=== PATIENT | male | born 1965 | race Two or more races ===

== ENCOUNTER 2025-01-01 10:33 | Outpatient (RCR) | payer MEDICAID, SELFPAY ==
--- NOTE | 2025-01-01 11:09 | PTNOTE_ITS ---
PT OP Initial Eval Patient Information Outpatient Physical Therapy Treatment Date: 01/01/25 Visit Reasons: low back pain Medical Diagnosis: M54.51 M54.16 Treatment Dx #1: LBP Treatment Dx #2: LE weakness Start of Care: 01/01/25 Date of Onset: 09/01/25 Smoking Status Smoking Status: Never smoker Initial Assessment Subjective: Pt is 59 yr old citizen of [place] speaking male s/p L5-S1 fusion with decompression in August. He reports pain and difficulty with putting socks on and cutting toe nails. The LE's feel weak and he reports difficulty with straightening the L knee. Pt has a 10lb lifting restriction. 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 Sit<>stand transfers: fair logroll with cues Assessment: Pt presents with B LE and core weakness and LBP consistent with surgical Hx. Pt requires skilled therapy to improve core activation and meet goals and has fair rehab potential. Short Term and [employer] Member Goals 1. Ind with HEP 2. Improved core activation to at least 4-/5 3. Improved SLR to 45 deg B without LBP and with core activation 4. Logroll independently with proper technique x2 Treatment Plan 1. Manual therapy ? 2. Therex? 3. Modalities as indicated, moist heat pack, ice, electrical stimulation Frequency and Duration: 1-2x a week for 12 Rx sessions plus the evaluation Certification Dates: 01/01/25 to 04/03/25 Procedure Charges OP PT Eval Mod Complex 30 minutes: Yes
== END 2025-01-07 23:59 | disposition home or self-care (01) ==
LOC: CPTX 10:33
PROVIDERS: PCP Orthopaedic Surgery Orthopaedic Surgery of the Spine; Referring Provider Orthopaedic Surgery Orthopaedic Surgery of the Spine; Visit Provider Orthopaedic Surgery Orthopaedic Surgery of the Spine
DX: M54.16 Radiculopathy, lumbar region (principal); R53.1 Weakness; Z98.1 Arthrodesis status
CPT/HCPCS: 97162

== ENCOUNTER 2025-02-05 09:30 | Outpatient (RCR) | payer MEDICAID, SELFPAY ==
--- NOTE | 2025-01-08 11:22 | PT.ODAYNRPT ---
PT Outpatient Daily Note OP Daily Note Outpatient Physical Therapy Treatment Date: 01/08/25 Visit Reasons: LOW BACK PAIN Subjective: Pt c/o low back, glute and tails bone pain. Objective: Please see flow sheet for ther ex list. Assessment: Pt demonstrates poor activity tolerance due to pain response. Pt unable to perform posterior pelvic tilt in supine, modified to standing against wall with cues, demonstration and feedback pt was able to perform. Plan: Continue with pOC. Length of Time (minutes) of Treatment: 30 Minutes Procedure Charges Therapeutic Exercise 30 minutes: Yes
--- NOTE | 2025-01-10 11:14 | PT.ODAYNRPT ---
PT Outpatient Daily Note OP Daily Note Outpatient Physical Therapy Treatment Date: 01/10/25 Visit Reasons: LOW BACK PAIN Subjective: Pt reports he was really sore after last session has some pain today, held on performing HEP due to how sore he was. Objective: Please see flow sheet for ther ex list. Assessment: regressed interventions to accommodate reproted pain and soreness. Plan: Assess response to treatment. Length of Time (minutes) of Treatment: 30 Minutes Procedure Charges Therapeutic Exercise 30 minutes: Yes
--- NOTE | 2025-01-14 11:26 | PT.ODAYNRPT ---
PT Outpatient Daily Note OP Daily Note Outpatient Physical Therapy Treatment Date: 01/14/25 Visit Reasons: LOW BACK PAIN Subjective: Pt c/o LBP and LE weakness Objective: See F/S for therex Assessment: Pt able to do partial body weight squatting on total gym Plan: Continue per POC Length of Time (minutes) of Treatment: 30 Minutes Procedure Charges Therapeutic Exercise 30 minutes: Yes
--- NOTE | 2025-01-16 09:31 | PT.ODAYNRPT ---
PT Outpatient Daily Note OP Daily Note Outpatient Physical Therapy Treatment Date: 01/16/25 Visit Reasons: LOW BACK PAIN Subjective: Pt reports LBP continues to be the same, still has difficulty getting around. Pt shared that there are times when his R knee gives out and his balance is off. Few days ago pt lost his balance at home and bumped his R leg on a dresser at home. Pt has a follow up with surgeon next tuesday. Objective: Please see flow sheet for ther ex list. 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 Plan: Continue with poC. Length of Time (minutes) of Treatment: 30 Minutes Procedure Charges Therapeutic Exercise 30 minutes: Yes
--- NOTE | 2025-01-22 09:37 | PT.ODS1RPT ---
PT OP Progress/Discharge Note Date of Service: 01/22/25 Progress Note/DC Note Progress Note/Discharge Note: Progress Note Patient Information Visit Reasons: LOW BACK PAIN Service Continue Service or Discharge: Continue Service Status Subjective: Pt reports continued high LBP that runs down the R glutes and LE's to the heels, groin pain on L and LE weakness with lifting the LE's Objective: Core activation: 4-/5 SLR: L: 40 deg R: 35 deg Logroll: with cues fair technique, but he forgets to without reminders TTP: high of incision scar Assessment: Pt has attended the evaluation and 5 Rx sessions with slow progress with goals due to continued LBP and LE weakness. Pt would benefit from continued therapy to meet goals. Plan: Continue per POC x7 more visits then reassess Procedure Charges Therapeutic Exercise 30 minutes: Yes
--- NOTE | 2025-01-29 11:18 | PT.ODAYNRPT ---
PT Outpatient Daily Note OP Daily Note Outpatient Physical Therapy Treatment Date: 01/29/25 Visit Reasons: LOW BACK PAIN Subjective: Pt c/o LBP and LE weakness Objective: See F/S for therex Assessment: Pt able to do partial body weight squatting on total gym. Pt has pain with sit to supine transfers and forgets to logroll. Plan: Continue per POC Length of Time (minutes) of Treatment: 30 Minutes Procedure Charges Therapeutic Exercise 30 minutes: Yes
--- NOTE | 2025-02-05 13:28 | PT.ODAYNRPT ---
PT Outpatient Daily Note OP Daily Note Outpatient Physical Therapy Treatment Date: 02/05/25 Visit Reasons: LOW BACK PAIN Subjective: Pt c/o LBP and LE weakness Objective: See F/S for therex MT: STM L/s x5' Assessment: Mod/high TTP of L/S paraspinals with manual therapy. Pt has pain with sit to supine transfers and forgets to logroll. Plan: Continue per POC Length of Time (minutes) of Treatment: 30 Minutes Procedure Charges Therapeutic Exercise 30 minutes: Yes
== END 2025-02-06 23:59 | disposition home or self-care (01) ==
LOC: CPTX 09:30
PROVIDERS: PCP Orthopaedic Surgery Orthopaedic Surgery of the Spine; Referring Provider Orthopaedic Surgery Orthopaedic Surgery of the Spine; Visit Provider Orthopaedic Surgery Orthopaedic Surgery of the Spine
DX: M54.16 Radiculopathy, lumbar region (principal); R53.1 Weakness; Z98.1 Arthrodesis status; I10 Essential (primary) hypertension
CPT/HCPCS: 97110

== ENCOUNTER 2025-03-06 09:00 | Outpatient (RCR) | payer MEDICAID, SELFPAY ==
--- NOTE | 2025-02-12 09:21 | PT.ODAYNRPT ---
PT Outpatient Daily Note OP Daily Note Outpatient Physical Therapy Treatment Date: 02/12/25 Visit Reasons: Low back pain Subjective: Pt c/o LBP and LE weakness Objective: See F/S for therex MT: STM L/s x5' Assessment: Mod/high TTP of L/S paraspinals with manual therapy. Pt has pain with sit to supine transfers and forgets to logroll. Plan: Continue per POC Length of Time (minutes) of Treatment: 30 Minutes Procedure Charges Therapeutic Exercise 30 minutes: Yes
--- NOTE | 2025-02-19 15:49 | PT.ODAYNRPT ---
PT Outpatient Daily Note OP Daily Note Outpatient Physical Therapy Treatment Date: 02/19/25 Visit Reasons: Low back pain Subjective: Pt reports he continues to have pain in low back, no progress at this time. Pt mentioned that doctor ordered an MRI and nerve conduction test, tests are not scheduled yet. PT has a follow up in the first week on March with surgeon. Objective: Please see flow sheet for ther ex list. Assessment: Pt demonstrates poor activity tolerance, delay in progression in clinic due to pain response. Plan: Continue with pOC. Length of Time (minutes) of Treatment: 30 Minutes Procedure Charges Therapeutic Exercise 30 minutes: Yes
--- NOTE | 2025-02-26 09:27 | PT.ODAYNRPT ---
PT Outpatient Daily Note OP Daily Note Outpatient Physical Therapy Treatment Date: 02/26/25 Visit Reasons: Low back pain Subjective: Pt reports no changes with LBP, pain is always present the pain level varies. Objective: Please see flow sheet for ther ex list. Assessment: Interventions progression slow in clinic due to pt pain response. Plan: Continue with pOC. Pt has 2 visits left. Length of Time (minutes) of Treatment: 30 Minutes Procedure Charges Therapeutic Exercise 30 minutes: Yes
--- NOTE | 2025-03-06 09:40 | PT.ODAYNRPT ---
PT Outpatient Daily Note OP Daily Note Outpatient Physical Therapy Treatment Date: 03/06/25 Visit Reasons: Low back pain Subjective: Pt reports today is a bad day, c/o moderate LBP. Objective: Please see flow sheet for ther ex list. Assessment: Regressed interventions to accommodate reported pain. Plan: Assess for note, pt has one more visit left. Length of Time (minutes) of Treatment: 30 Minutes Procedure Charges Therapeutic Exercise 30 minutes: Yes
== END 2025-03-09 23:59 | disposition home or self-care (01) ==
LOC: CPTX 09:00
PROVIDERS: PCP Orthopaedic Surgery Orthopaedic Surgery of the Spine; Referring Provider Orthopaedic Surgery Orthopaedic Surgery of the Spine; Visit Provider Orthopaedic Surgery Orthopaedic Surgery of the Spine
DX: M54.16 Radiculopathy, lumbar region (principal); Z98.1 Arthrodesis status; I10 Essential (primary) hypertension
CPT/HCPCS: 97110

== ENCOUNTER 2025-03-13 08:56 | Outpatient (RCR) | payer MEDICAID, SELFPAY ==
--- NOTE | 2025-03-13 10:06 | PT.ODS1RPT ---
PT OP Progress/Discharge Note Date of Service: 03/13/25 Progress Note/DC Note Progress Note/Discharge Note: DC Note Patient Information Visit Reasons: low back pain Service Continue Service or Discharge: Discharge Discharge Date: 03/13/25 Status Subjective: Pt reports continued high LBP that runs down the R glutes and LE's to the heels, groin pain on L and LE weakness with lifting the LE's Objective: Core activation: 4-/5 to the L, 3+/5 to the R SLR: L: 40 deg with LE shaking R: 35 deg with LE shaking Logroll: with cues fair technique, but he forgets to without reminders TTP: moderate/high of incision scar Assessment: Pt has attended the evaluation and 09/20 Rx sessions with slow progress with goals due to continued LBP and LE weakness with SLR and pain running down the R glute. He hasn't met the goals of improved SLR ROM to 45 deg and core activation to 4-/5. He did meet the goal of logrolling independently with proper technique x2. Pt is not making progress with goals or benefitting from therapy. Plan: D/C Procedure Charges Therapeutic Exercise 30 minutes: Yes
== END 2025-04-08 23:59 | disposition home or self-care (01) ==
LOC: CPTX 08:56
PROVIDERS: PCP Orthopaedic Surgery Orthopaedic Surgery of the Spine; Referring Provider Orthopaedic Surgery Orthopaedic Surgery of the Spine; Visit Provider Orthopaedic Surgery Orthopaedic Surgery of the Spine
DX: M54.16 Radiculopathy, lumbar region (principal); Z98.1 Arthrodesis status; I10 Essential (primary) hypertension
CPT/HCPCS: 97110

== ENCOUNTER 2025-09-03 10:21 | Outpatient (RCR) | payer MEDICAID, SELFPAY ==
--- NOTE | 2025-09-03 11:36 | PTNOTE_ITS ---
PT OP Initial Eval Patient Information Outpatient Physical Therapy Treatment Date: 09/03/25 Visit Reasons: LOW BACK PAIN Medical Diagnosis: M54.42 Treatment Dx #1: Back Pain Treatment Dx #2: L/S Mobility Deficits Start of Care: 09/03/25 Date of Onset: Aug 2024 Smoking Status Smoking Status: Never smoker Initial Assessment Subjective: Pt is a 59 y/o male reports of worsening back pain (04/18) with numbness and weakness down the legs R>L since his lumbar fusion by Dr Callahan. Pt has limitation with sitting, standing, chores, self care, cooking, cleaning, and walking, and performing recreational activities. Objective: L/S AROM: all motions are 25% towards end range with pain in all plane Hip PROM: all motions are WFL except IR bilaterally Hip MMTs: grossly 3+/5 Muscle Length: Hs tightness Assessment: Pt demonstrate L/S mobility deficits with pain leading to difficulty with ADLs. Pt will benefit from physical therapy to increase ROM, strength, and work on LE strength. Short Term and Penitentiary Goals 1) Increase L/S AROM WFL in 6 wks to be able to perform chores 2) Decrease back pain to 2/10 in 6 wks to be able to sit and stand more than 30 mins 3) Increase core strength WFL in 6 wks to be able to perform recreational activities 4) Increase hip MMTs grossly to 4-/5 in 6 wks to be able to walk more than 30 mins 5) Indep with HEP Treatment Plan 1) Manual Therapy 2) Therapeutic Activities 3) Therapeutic Exercises 4) Modalities (ice, heat) 5) Balance Training 6) Gait Training Frequency and Duration: 2 x wk for 6 wks Certification Dates: 09/03/25 to 12/04/25 Procedure Charges OP PT Eval Mod Complex 30 minutes: Yes
== END 2025-09-08 23:59 | disposition home or self-care (01) ==
LOC: CPTX 10:21
PROVIDERS: PCP Family Medicine; Referring Provider Family Medicine; Visit Provider Family Medicine
DX: M54.42 Lumbago with sciatica, left side (principal)
CPT/HCPCS: 97162

== ENCOUNTER 2025-10-08 15:00 | Outpatient (RCR) | payer MEDICAID, SELFPAY ==
--- NOTE | 2025-09-10 15:09 | PT.ODAYNRPT ---
PT Outpatient Daily Note OP Daily Note Outpatient Physical Therapy Treatment Date: 09/10/25 Visit Reasons: Low back pain Subjective: Pt' back is about the same. No change in overall pain. Pt is having a heart procedure 09/17/35 for a clogged artery Objective: Please see flow chart for list of ther ex performed Assessment: pain with all exercises despite using pre-heat. Minimal change in overall L/S mobility post PT session Plan: Continue with PT Length of Time (minutes) of Treatment: 30 Minutes Procedure Charges Therapeutic Exercise 30 minutes: Yes
--- NOTE | 2025-09-12 14:08 | PT.ODAYNRPT ---
PT Outpatient Daily Note OP Daily Note Outpatient Physical Therapy Treatment Date: 09/12/25 Visit Reasons: Low back pain Subjective: Pt reprots back continues to be painful and stiff. Pt mentioned that he will be having a cardiac procedure on Tuesday. Objective: Please see flow sheet for ther ex list. Assessment: Pt ambulates with decrease arm swing and stiff hips. Added stretches completed with minimal discomfort. Plan: Continue with pOC. Length of Time (minutes) of Treatment: 30 Minutes Procedure Charges Therapeutic Exercise 30 minutes: Yes
--- NOTE | 2025-10-08 15:48 | PT.ODS1RPT ---
PT OP Progress/Discharge Note Date of Service: 10/08/25 Progress Note/DC Note Progress Note/Discharge Note: DC Note Patient Information Visit Reasons: Low back pain Medical Diagnosis: M54.42 Treatment Dx #1: Back Pain Treatment Dx #2: L/S Mobility Deficits Service Continue Service or Discharge: Discharge Discharge Date: 10/08/25 Status Subjective: Pt's back pain is about the same. Pt continues to have limitation with sitting, standing, chores, self care, and performing recreational activities. Pt will like to stop therapy for his back and start therapy for the right shoulder. Objective: L/S AROM: all motions are 50% towards end range in all plane Hip PROM: all motions are WFL except IR bilaterally Hip MMTs: grossly 3+/5 Muscle Length: Hs tightness Assessment: Pt demonstrate limited L/S AROM with pain leading to difficulty with ADLs. Pt will no longer benefit from physical therapy due to minimal progression towards goals. Pt was instructed on HEP last session and educated to continue exercises to maintain overall mobility. Pt performed all exercises safely, thank you for your referrals. Plan: D/C home with HEP and follow up with MD ROWELL Procedure Charges Therapeutic Exercise 30 minutes: Yes
== END 2025-10-09 23:59 | disposition home or self-care (01) ==
LOC: CPTX 15:00
PROVIDERS: PCP Family Medicine; Referring Provider Family Medicine; Visit Provider Family Medicine
DX: M54.42 Lumbago with sciatica, left side (principal); R26.2 Difficulty in walking, not elsewhere classified; Z98.1 Arthrodesis status
CPT/HCPCS: 97110